=== PATIENT | male | born 1960 | race Caucasian/White ===

== ENCOUNTER → 2021-10-18 | Outpatient (CLI) | payer OTHER ==
--- NOTE | 2021-10-19 04:49 | MR ---
EXAMINATION TYPE: MR shoulder RT wo con DATE OF EXAM: 10/18/2021 COMPARISON: None HISTORY: R shoulder pain Multiplanar multiecho imaging of the right shoulder without contrast. The biceps tendon is intact. Subscapularis tendon is intact. There is a small shoulder joint effusion . The glenoid moon appear normal. There is no evidence of a fracture. Humeral head is intact. There is a full thickness defect through the supraspinatus tendon best seen on the T2 sagittal image 9. The re is no retraction. There is minor spurring at the AC joint with minimal subacromial impingement. Th ere is small amount of subdeltoid fluid. IMPRESSION: There is full-thickness tear of the supraspinatus tendon without retraction. Mild subdeltoid fluid an d shoulder joint fluid consistent with subdeltoid bursitis and shoulder joint bursitis. No fracture s een. Minimal subacromial impingement.
== END | disposition home or self-care (01) ==
LOC: RADMRIMAIN 11:06
PROVIDERS: ATTEND Orthopaedic Surgery
DX: M75.111 Incomplete rotator cuff tear or rupture of right shoulder, not specified as traumatic (principal); M75.51 Bursitis of right shoulder

== ENCOUNTER 2024-06-01 13:54 | Emergency (ER) | payer OTHER ==
[2024-06-01 14:09] VITALS: TEMP 98.5
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
[2024-06-01 17:34] VITALS: BP 156/91; PULSE 56; RESP 18
== END 2024-06-01 17:35 | disposition home or self-care (01) ==
LOC: EC 13:54
DX: T84.039A Mechanical loosening of unspecified internal prosthetic joint, initial encounter (principal)
CPT/HCPCS: 99283

== ENCOUNTER → 2025-02-24 | Outpatient (CLI) | payer OTHER ==
[2025-02-24 17:49] LABS: HCT 42.3 % (39.6-50.0); HGB 14.5 g/dL (13.0-17.0); MCH 30.1 pg (27.0-32.0); MCHC 34.3 g/dL (32.0-37.0); MCV 87.8 fL (80.0-97.0); Mean Platelet Volume 8.8 fL (9.5-12.2); Platelet Count 229 10*3/uL (140-440); RBC 4.82 10*6/uL (4.40-5.60); RDW 13.2 % (11.5-14.5); WBC 8.85 10*3/uL (4.50-10.00)
[2025-02-25 03:32] LABS: Erythrocyte Sedimentation Rate 8 mm/Hr (0-20)
== END | disposition home or self-care (01) ==
LOC: LABMAIN 17:34
PROVIDERS: ATTEND Orthopaedic Surgery Orthopaedic Trauma
DX: M86.9 Osteomyelitis, unspecified (principal)
CPT/HCPCS: 85027; 85652; 86140